=== PATIENT | female | born 1975 | race Caucasian/White ===

== ENCOUNTER 2018-03-17 07:52 | Day surgery (SDC) | payer OTHER ==
[2018-03-17] MEDS ORDERED: LIDOCAINE 2% (SDV) 5 ML INJ (09:36)
[2018-03-17] MEDS ORDERED: PROPOFOL 40 ML (09:36)
== END 2018-03-17 09:44 | disposition home or self-care (01) ==
LOC: GIL 07:52
DX: K64.8 Other hemorrhoids (principal)
CPT/HCPCS: 45378; 84703; 88305

== ENCOUNTER 2018-07-16 11:32 | Emergency (ER) | payer OTHER ==
[2018-07-16] MEDS: IBUPROFEN 800 MG TAB PO (12:24)
== END 2018-07-16 13:33 | disposition home or self-care (01) ==
LOC: FTE 11:32
DX: M25.512 Pain in left shoulder (principal); M62.830 Muscle spasm of back
CPT/HCPCS: 73010; 99283-25

== ENCOUNTER 2018-08-16 13:37 | Emergency (ER) | payer OTHER | END 2018-08-16 17:17 | disposition home or self-care (01) | LOC: FTE 13:37 | DX: M25.561 Pain in right knee (principal) | CPT/HCPCS: 29505; 73562; 99283-25 ==

== ENCOUNTER 2019-04-15 21:10 | Emergency (ER) | payer OTHER | END 2019-04-16 00:19 | disposition home or self-care (01) | LOC: FTE 04-16 00:19 | DX: R42 Dizziness and giddiness (principal) | CPT/HCPCS: 81025; 99283 ==